=== PATIENT | female | born 1945 | race Caucasian/White ===

== ENCOUNTER 2020-04-18 06:32 | Outpatient (CLI) | payer MEDICARE, SELFPAY ==
--- NOTE | 2020-04-23 10:36 | WPDNEUROLOGY ---
Neurology EEG Report General Information Date of Study: 04/18/20 TEST EEG DIAGNOSIS recurrent syncopal episode in addition to the history of meningioma CONDITION OF RECORDING awake, drowsy and sleep EEG NUMBER [id number] CLINICAL HISTORY patient reported she has had 2 episodes of blacking out. No warning signs before and is fine afterwards. EEG DESCRIPTION Basic resting occipital frequency consists of minimal amount of poorly organized low voltage 9 to 11 hertz per second alpha. Low-voltage beta activity is seen during drowsiness. bilateral symmetrical sleep activity seen during sleep. photic stimulation produced normal drive. hyperventilation not done .non paroxysmal, nonfocal, non lateralizing. IMPRESSION No significant abnormalities noted.
== END 2020-04-18 06:33 | disposition home or self-care (01) ==
PROVIDERS: PCP Internal Medicine; Visit Provider Internal Medicine
DX: R55 Syncope and collapse (principal); D32.0 Benign neoplasm of cerebral meninges
CPT/HCPCS: 95816

== ENCOUNTER 2021-04-20 12:40 | Outpatient (CLI) | payer MEDICARE, SELFPAY ==
--- NOTE | ~2021-04-20 | MR_ITS ---
EXAMINATION: MR brain/brain stem wo con EXAM DATE: 04/20/2021 14:07 INDICATION: Headache and confusion. History meningioma 2008. TECHNIQUE: Magnetic resonance imaging (MRI) of the brain/brain stem obtained without contrast. Elidaitt al T1, axial diffusion, gradient echo (T2*), T1, T2, FLAIR sequences obtained. There is no prior st udy for comparison. FINDINGS: There is a mass which appears to be extra-axial and arising from the right sphenoid wing, m easuring 3.1 x 3.1 axial dimensions, encasing the right distal ICA and middle cerebral artery, and bu lging into the brain parenchyma. Ill-defined interface with the brain parenchyma at the superior joanne in, difficult to totally exclude parenchymal invasion without contrast enhanced images. There is larg e amount of right cerebral white matter vasogenic edema. There is also extension into the sella turci ca. There is 11 mm of contralateral leftward midline shift. There is effacement of the right lateral ventricle. No transtentorial herniation. Old left cerebellar infarction. There is mild to moderate microangiopathy. Dilated perivascular space s. No acute infarction, extra-axial collections or acute intracranial hemorrhage. IMPRESSION: Large right-sided extra-axial mass most likely meningioma arising from sphenoid wing, bulging into se lla turcica, brain parenchyma causing extensive vasogenic edema, and moderate contralateral midline s hift. Right distal ICA, MCA encasement. Given these findings, neurosurgical consult should be obtaine d. Contrast enhanced images should also be obtained to exclude parenchymal invasion. I discussed this case, recommendation with Antoine DeleonMD at 04/20/2021 14:35 PREDICTIVE MAINTENANCE TECHNICIAN. Reviewed, dictated and finalized at location A. ICTIVE MAINTENANCE TECHNICIAN IMPRESSION: Large right-sided extra-axial mass most likely meningioma arising from sphenoid wing, bulging into sella turcica, brain parenchyma causing extensive vasogenic edema, and moderate contralateral midline shift. Right distal ICA, MCA encasem ent. Given these findings, neurosurgical consult should be obtained. Contrast e nhanced images should also be obtained to exclude parenchymal invasion. I discussed this case, recommendation with Antoine DeleonMD at 04/20/2021 14:35 PREDICTIVE MAINTENANCE TECHNICIAN.
== END 2021-04-20 12:41 | disposition home or self-care (01) ==
LOC: ANHIMG 12:46
PROVIDERS: PCP Internal Medicine; Visit Provider Internal Medicine
DX: R41.0 Disorientation, unspecified (principal); R51.9 Headache, unspecified
CPT/HCPCS: 70551

== ENCOUNTER 2021-06-19 00:52 | Day surgery (SDC) | payer MEDICARE, SELFPAY ==
[2021-05-28 13:28] VITALS: BMI 25.4
--- NOTE | 2021-05-28 14:00 | PC.NURSE ---
Report to the Outpatient Waiting Room, entrance under the green pavilion located off [facility], at time _0600_ on date _06/03/21__. OR Time: _0730 AM__. - You and your visitor will be asked a series of questions to screen for COVID 19 for your protection. - A mask is required within the hospital. - NO visitors is allowed at this time. Patient visitors will be guided where to wait when not with patient. Preoperative COVID Testing Requirements: No COVID Test needed if: (proof is required; if not received patient will have Rapid Test prior to entry) - Patient has received COVID Vaccine at least 14 days prior to procedure date or - Patient has positive COVID test result within last 90 days of surgery date. COVID Test needed if above criteria is not met If not COVID vaccinated a COVID test must be conducted within 72 hours of surgery and patient is asked to isolate self from time of testing until procedure. You will go to the [employer] [facility] for your COVID testing. The [employer] [facility] is located at the corner [address] [facility]. You will only be called if COVID results are positive and your surgeon may reschedule your elective surgery date. Patients may have clear liquids (water, carbonated beverages, clear teas, apple juice) until 3 hours prior to surgery with a maximum of 20 ounces. (0430 AM) - No food from midnight until time of surgery - Infants may have breast milk until 4 hours before surgery, infant formula 6 hours prior to surgery. - Children will be allowed to drink immediately following surgery. If applicable, please bring a bottle or sippy cup to assist with drinking. Juice, water, soda, and popsicles are readily available. For infants on formula, please bring formula the day of surgery. Pacifiers are allowed. Take the following medications with a SIP of water the morning of surgery: _AMLODIPINE, DEXAMETHASONE, LEVETIRACETAM, LEVOTHYROXINE, LORAZEPAM, SERTRALINE, VENLAFAXINE, EYE DROPS__ Medications to discontinue per ANESTHESIA - _ALL VITAMINS AND SUPPLEMENTS____ Date to take last dose____05/30/21 Please no make-up, nail lithuanian, hairspray, perfume, deodorant, or body powder the day of surgery. No jewelry (including any body piercings) or valuables the day of surgery, leave them at home. Please take a shower or bath the night before, or the morning of, surgery with an antibacterial soap. Wear comfortable, loose fitting clothing. Children are encouraged to wear pajamas. - Jewelry must be removed prior to entering the operating room. Rings and piercings that are not removed may be cut off. - The hospital will not accept responsibility for valuables. - Please leave all valuables, including medications, at home the day of surgery. If you are going home after surgery, a licensed regional otr company driver must drive you home. - NO public transportation without another adult. - We recommend that an adult stay with you for 24 hours following discharge. - We also recommend that you do not drive, make important decision, drink alcoholic beverages, or take any drugs that were not prescribed by your health care provider for at least 24 hours after your discharge time. For Pediatric surgeries, we recommend two adults accompany the child home (only one inside the building at this time). Follow any additional instructions given to you from your surgeon. FLEETS ENEMA NIGHT BEFORE & AM OF SURGERY Telephone instructions given to_P'TS SPOUSE - EMIL__and asked if any additional questions and then verbalized understanding. Patient advised to call surgeon office or pre surgery nurse liaison [phone] if any additional questions.
--- NOTE | 2021-06-02 14:17 | WPDANESEPPF ---
Anes - Initial Pre Proc Eval Procedure: Operation Date: 06/03/21 07:30 Proposed Procedures p Rubber Band Ligation of Internal Hemorrhoids - Claudio Anderson MD Date/Time: 06/18/21 14:17 Surgeon: Claudio Anderson MD Pre Op Diagnosis: prolapsed bleeding internal hemorrhoids stage (IV) Patient Data Age: 75 Gender: F Height: 1.63 m Weight: 67.27 kg Allergies Allergy/AdvReac Type Severity Reaction Status Date / Time adhesive tape Allergy Intermediate Rash Verified 06/19/21 08:39 Sulfa (Sulfonamide Allergy Intermediate Rash Verified 06/19/21 08:39 Antibiotics) latex Allergy Rash Verified 06/19/21 09:35 Home Medications Medication Instructions Recorded Confirmed Type amlodipine 5 mg tablet 5 mg PO QAM 04/08/21 06/19/21 History cetirizine 10 mg tablet 10 mg PO DAILY PRN 04/08/21 06/19/21 History donepezil 5 mg tablet 5 mg PO QHS 04/08/21 06/19/21 History levothyroxine 50 mcg capsule 50 mcg PO QAM 04/08/21 06/19/21 History lorazepam 0.5 mg tablet 0.25 mg PO DAILY PRN 04/08/21 06/19/21 History losartan 50 mg tablet 150 mg PO QAM tablet 04/08/21 06/19/21 History venlafaxine 150 mg 150 mg PO QAM 04/08/21 06/19/21 History capsule,extended release 24 hr carboxymethylcellulose sodium 0.5 1 drp EACH EYE BID 04/14/21 06/19/21 History % eye drops cholecalciferol (vitamin D3) 25 25 mcg PO DAILY 04/14/21 06/19/21 History mcg (1,000 unit) capsule cyclosporine 0.05 % eye drops 1 drp EACH EYE Q12H 04/14/21 06/19/21 History multivitamin 1 tablet PO QAM 04/14/21 06/19/21 History sertraline 100 mg tablet 100 mg PO QAM 04/14/21 06/19/21 History vitamin E 200 unit capsule 200 unit PO QAM 04/14/21 06/19/21 History vitamins A,C,Z-dhdo-ekrlzq 14,320 1 cap PO BID 04/14/21 06/19/21 History unit-226 mg-200 unit capsule dexamethasone 8 mg BID 12/30/21 01/21/22 History levetiracetam 250 mg PO BID 05/28/21 06/19/21 History pentoxifylline 400 mg PO TID 05/28/21 06/19/21 History carbidopa-levodopa 1 tablet PO TID 06/12/21 06/19/21 History hydrocodone-acetaminophen 1 tablet PO Q6H PRN #10 tablet 06/19/21 Rx Patient hx anesthesia problems: none Family hx anesthesia problems: none Results Review: All pre-operative results and documents have been reviewed as part of the pre-operative evaluation. PENDING SALE TO [facility] Past Medical History Medical History (Updated 06/19/21 @ 10:32 by Claudio Anderson MD) Dizziness History of breast cancer Hypertension Meningioma Primary hyperparathyroidism Seizures Thyroid disease Surgical History Surgical History Status post bilateral knee replacements 2012 and 2013 Family History Family History Father Hypertension Family history of congestive heart failure Mother Hypertension Family history of emphysema Sibling Hypertension Grandparent Cerebrovascular accident Social History Social History Smoking status: Never smoker Second hand tobacco smoke exposure: No Alcohol intake: never Substance use: never Substance use type: does not use Living arrangements: with family Spiritual care concerns: No Anes - Eval Final PreProcedure Day of Procedure 06/02/21 14:17 Patient weight: overweight Heart: regular rate and rhythm Lungs: clear to auscultation and normal air movement Airway: Mallampati scale class II Neurological: alert and oriented Last oral intake: >/= 8 hours ASA classification: III Emergent: no Anesthetic plan: proceed Anesthesia type and monitoring: general GIVS and standard monitoring Results Review: All pre-operative results and documents have been reviewed as part of the pre-operative evaluation. Informed Consent: The patient's anesthetic plan and its attendant risks and benefits were discussed with the patient/family/POA. Questions were solicited and answers provided to the satisfact
[2021-06-12 13:15] VITALS: BMI 25.4
--- NOTE | 2021-06-12 13:26 | PC.NURSE ---
Report to the Outpatient Waiting Room, entrance under the green pavilion located off [facility], at time _0730_ on date _06/19/21_. OR Time: __929___. - You and your visitor will be asked a series of questions to screen for COVID 19 for your protection. - A mask is required within the hospital. - No visitors are allowed at this time. Patient visitors will be guided where to wait when not with patient. Preoperative COVID Testing Requirements: No COVID Test needed if: (proof is required; if not received patient will have Rapid Test prior to entry) - Patient has received COVID Vaccine at least 14 days prior to procedure date or - Patient has positive COVID test result within last 90 days of surgery date. COVID Test needed if above criteria is not met If not COVID vaccinated a COVID test must be conducted within 72 hours of surgery and patient is asked to isolate self from time of testing until procedure. You will go to the [employer] [facility] for your COVID testing. The [employer] [facility] is located at the corner of [address] [facility]. You will only be called if COVID results are positive and your surgeon may reschedule your elective surgery date. Patients may have clear liquids (water, carbonated beverages, clear teas, apple juice) until 3 hours prior to surgery with a maximum of 20 ounces. (0630 AM) - No food from midnight until time of surgery - Infants may have breast milk until 4 hours before surgery, infant formula 6 hours prior to surgery. - Children will be allowed to drink immediately following surgery. If applicable, please bring a bottle or sippy cup to assist with drinking. Juice, water, soda, and popsicles are readily available. For infants on formula, please bring formula the day of surgery. Pacifiers are allowed. Take the following medications with a SIP of water the morning of surgery: _AMLODIPINE, CARBIDOPA-LEVODOPA, DEXAMETHASONE, LEVETIRACETAM, LEVOTHYROXINE, LORAZEPAM, SERTRALINE, VENLAFAXINE, EYE DROPS_ Medications to discontinue per ANESTHESIA - _ALL VITAMINS & SUPPLEMENTS 3 DAYS PRIOR TO SURGERY____ Date to take last dose 06/15/21 Please no make-up, nail greenlandic, hairspray, perfume, deodorant, or body powder the day of surgery. No jewelry (including any body piercings) or valuables the day of surgery, leave them at home. Please take a shower or bath the night before, or the morning of, surgery with an antibacterial soap. Wear comfortable, loose fitting clothing. Children are encouraged to wear pajamas. - Jewelry must be removed prior to entering the operating room. Rings and piercings that are not removed may be cut off. - The hospital will not accept responsibility for valuables. - Please leave all valuables, including medications, at home the day of surgery. If you are going home after surgery, a licensed warehouse delivery driver must drive you home. - NO public transportation without another adult. - We recommend that an adult stay with you for 24 hours following discharge. - We also recommend that you do not drive, make important decision, drink alcoholic beverages, or take any drugs that were not prescribed by your health care provider for at least 24 hours after your discharge time. For Pediatric surgeries, we recommend two adults accompany the child home (only one inside the building at this time). Follow any additional instructions given to you from your surgeon. FLEETS ENEMA NIGHT BEFORE & AN OF SURGERY Telephone instructions given to __PT'S SPOUSE FRANCIS and asked if any additional questions and then verbalized understanding. Patient advised to call surgeon office or pre surgery nurse liaison [phone] if any additional questions.
--- NOTE | 2021-06-17 14:40 | PM.SD2 ---
Same Day Admit/Disch: HPI History of Present Illness Chief complaint: prolapsed bleeding internal hemorrhoids stage (IV) Narrative: Juliette Bradshaw is a 75 year old female With history of meningioma. She was seen in the office with complaints of rectal bleeding and a prolapsing hemorrhoid. Examination showed a chronically prolapsed, stage IV, right posterior complex internal hemorrhoid. She is taken to surgery now for rubber band ligation. [facility] Past Medical History Medical History (Updated 06/19/21 @ 10:32 by Claudio Anderson MD) Dizziness History of breast cancer Hypertension Meningioma Primary hyperparathyroidism Seizures Thyroid disease Surgical History Surgical History Status post bilateral knee replacements 2012 and 2013 Family History Family History Father Hypertension Family history of congestive heart failure Mother Hypertension Family history of emphysema Sibling Hypertension Grandparent Cerebrovascular accident Social History Social History Smoking status: Never smoker Second hand tobacco smoke exposure: No Alcohol intake: never Substance use: never Substance use type: does not use Living arrangements: with family Spiritual care concerns: No Same Day Admit/Disch: Med Pre-admit Medications Home Medications Medication Instructions Recorded Confirmed Type amlodipine 5 mg tablet 5 mg PO QAM 04/08/21 06/19/21 History cetirizine 10 mg tablet 10 mg PO DAILY PRN 04/08/21 06/19/21 History donepezil 5 mg tablet 5 mg PO QHS 04/08/21 06/19/21 History levothyroxine 50 mcg capsule 50 mcg PO QAM 04/08/21 06/19/21 History lorazepam 0.5 mg tablet 0.25 mg PO DAILY PRN 04/08/21 06/19/21 History losartan 50 mg tablet 150 mg PO QAM tablet 04/08/21 06/19/21 History venlafaxine 150 mg 150 mg PO QAM 04/08/21 06/19/21 History capsule,extended release 24 hr carboxymethylcellulose sodium 0.5 1 drp EACH EYE BID 04/14/21 06/19/21 History % eye drops cholecalciferol (vitamin D3) 25 25 mcg PO DAILY 04/14/21 06/19/21 History mcg (1,000 unit) capsule cyclosporine 0.05 % eye drops 1 drp EACH EYE Q12H 04/14/21 06/19/21 History multivitamin 1 tablet PO QAM 04/14/21 06/19/21 History sertraline 100 mg tablet 100 mg PO QAM 04/14/21 06/19/21 History vitamin E 200 unit capsule 200 unit PO QAM 04/14/21 06/19/21 History vitamins A,C,A-imkw-savfhv 14,320 1 cap PO BID 04/14/21 06/19/21 History unit-226 mg-200 unit capsule dexamethasone 8 mg BID 05/28/21 06/19/21 History levetiracetam 250 mg PO BID 05/28/21 06/19/21 History pentoxifylline 400 mg PO TID 05/28/21 06/19/21 History carbidopa-levodopa 1 tablet PO TID 06/12/21 06/19/21 History hydrocodone-acetaminophen 1 tablet PO Q6H PRN #10 tablet 06/19/21 Rx Exam Const: General: comfortable, no acute distress, alert and awake HENMT: Head: normocephalic and atraumatic Mouth: Yes Normal oral and palatal mucosa present Eyes: Conjunctivae: conjunctivae normal Pupils: Equal, round and reactive pupils present EOM: EOMs intact bilaterally Resp: Effort & Inspection: normal respiratory effort Auscultation: clear to auscultation bilaterally Cardio: Rate: regular rate Rhythm: regular rhythm Heart sounds: no gallops, no murmurs and no rubs GI: Inspection: non-distended GI Palp: Yes Soft to palpation, No Tenderness to palpation present (GI), No Hepatomegaly present and No Splenomegaly present Rectal Exam: External hemorrhoid(s) present ( small and uncomplicated, asymptomatic) and Internal hemorrhoid(s) present ( Prolapsed right posterior internal hemorrhoid) Skin: Lesions: no lesions Rashes: no rashes Neuro: General: no focal motor deficits and CN's II-XI intact bilaterally Cranial nerves: Yes Equal, round and reactive pupils present, Yes Bilaterally intact EOM present, Yes faci
--- NOTE | 2021-06-19 07:08 | WPDHPUPDATE1 ---
History and Physical Update Update Date/Time: 06/19/21 07:08 History and Physical has been reviewed, including an updated exam of the patient. There are NO changes in the patient's condition. Risks, benefits, and alternatives have been discussed and questions answered. Patient agrees to proceed with procedure.
--- NOTE | 2021-06-19 08:08 | WPDANESEPP ---
Anes - Eval Pre Procedure Procedure: Operation Date: 06/19/21 09:30 Proposed Procedures p Rubber Band Ligation of Internal Hemorrhoids - Claudio Anderson MD Date/Time: 06/19/21 08:08 Pre Op Diagnosis: prolapsed bleeding internal hemorrhoids stage (IV) Patient Data Age: 75 Gender: F Height: 1.63 m Weight: 67.27 kg Allergies Allergy/AdvReac Type Severity Reaction Status Date / Time adhesive tape Allergy Intermediate Rash Verified 06/12/21 13:19 Sulfa (Sulfonamide Allergy Intermediate Rash Verified 06/12/21 13:19 Antibiotics) Home Medications Medication Instructions Recorded Confirmed Type amlodipine 5 mg tablet 5 mg PO QAM 04/08/21 06/12/21 History cetirizine 10 mg tablet 10 mg PO DAILY PRN 04/08/21 06/12/21 History donepezil 5 mg tablet 5 mg PO QHS 04/08/21 06/12/21 History levothyroxine 50 mcg capsule 50 mcg PO QAM 04/08/21 06/12/21 History lorazepam 0.5 mg tablet 0.25 mg PO DAILY PRN 04/08/21 06/12/21 History losartan 50 mg tablet 150 mg PO QAM tablet 04/08/21 06/12/21 History venlafaxine 150 mg 150 mg PO QAM 04/08/21 06/12/21 History capsule,extended release 24 hr carboxymethylcellulose sodium 0.5 1 drp EACH EYE BID 04/14/21 06/12/21 History % eye drops cholecalciferol (vitamin D3) 25 25 mcg PO DAILY 04/14/21 06/12/21 History mcg (1,000 unit) capsule cyclosporine 0.05 % eye drops 1 drp EACH EYE Q12H 04/14/21 06/12/21 History multivitamin 1 tablet PO QAM 04/14/21 06/12/21 History sertraline 100 mg tablet 100 mg PO QAM 04/14/21 06/12/21 History vitamin E 200 unit capsule 200 unit PO QAM 04/14/21 06/12/21 History vitamins A,C,P-wqsp-rnsqxr 14,320 1 cap PO BID 04/14/21 06/12/21 History unit-226 mg-200 unit capsule dexamethasone 8 mg BID 05/28/21 06/12/21 History levetiracetam 250 mg PO BID 05/28/21 06/12/21 History pentoxifylline 400 mg PO TID 05/28/21 06/12/21 History carbidopa-levodopa 1 tablet PO TID 06/12/21 06/12/21 History Patient hx anesthesia problems: none Family hx anesthesia problems: none Results Review: All pre-operative results and documents have been reviewed as part of the pre-operative evaluation. [facility] Past Medical History Medical History (Updated 06/19/21 @ 08:09 by Rebecca Mosqueda CRNA) Dizziness History of breast cancer Hypertension Meningioma Primary hyperparathyroidism Seizures Thyroid disease Surgical History Surgical History Status post bilateral knee replacements 2012 and 2013 Family History Family History Father Hypertension Family history of congestive heart failure Mother Hypertension Family history of emphysema Sibling Hypertension Grandparent Cerebrovascular accident Social History Social History Smoking status: Never smoker Second hand tobacco smoke exposure: No Alcohol intake: never Substance use: never Substance use type: does not use Living arrangements: with family Spiritual care concerns: No Exam Day of Procedure 06/19/21 08:08 Patient weight: normal
[2021-06-19] MEDS: LACTATED RINGERS 1,000 ML 30 ML IV CONT (09:30)
[2021-06-19] MEDS: KETOROLAC 15 MG/ML VIAL (*BKC) IV PUSH (09:31)
[2021-06-19 09:32] VITALS: BP 103/73; PULSE 95; RESP 16; TEMP 36.7; O2SAT 95
--- NOTE | 2021-06-19 09:32 | WPDANESEFPP ---
Anes - Eval Final PreProcedure Day of Procedure 06/19/21 09:32 Patient weight: normal Lungs: clear to auscultation and decreased breath sounds Airway: Mallampati scale class II Neurological: lethargic and confused (pt's family at bedside. states pt has been having some confusion since February. pt alert and oriented at this time though seems to have trouble with recalling health history etc.) ASA classification: III Anesthetic plan: proceed Anesthesia type and monitoring: general GIVS Results Review: All pre-operative results and documents have been reviewed as part of the pre-operative evaluation. Informed Consent: The patient's anesthetic plan and its attendant risks and benefits were discussed with the patient/family/POA. Questions were solicited and answers provided to the satisfaction of the patient/family/POA.
[2021-06-19] MEDS: ceFAZolin 2 GM/D5W 50 ML 2 GM/50 ML BAG IVPB (09:41)
[2021-06-19] MEDS: BUPIVACAINE/EPINEPHRINE 0.25% 10 ML VIAL 30 ML INFILTRATE (10:00)
[2021-06-19 10:21] VITALS: BP 101/72; PULSE 79; RESP 12; O2SAT 95
--- NOTE | 2021-06-19 10:33 | W.PM.PROC2 ---
Procedure Note - Detailed Date of Procedure 06/19/21 Pre-op Diagnosis prolapsed bleeding internal hemorrhoids stage (IV) Post-op Diagnosis other (Prolapsed bleeding internal and external hemorrhoids) Procedure Performed Excision right anterior internal and external hemorrhoids, rubber-band ligation internal hemorrhoids Surgeon Claudio Anderson MD Anesthesia MAC and local (0.25% Marcaine with epinephrine) Indications Patient has had a chronic stage IV prolapsed internal hemorrhoid in the right anterior position which is uncomfortable and also bleeds. She is taken to surgery now for rubber-band ligation. Findings The internal hemorrhoid was larger than expected and associated with an external hemorrhoid. This complex was excised from the right anterior position. There was still an internal hemorrhoid which was treated with rubber-band ligation in the same location. Description of Procedure The patient was taken to surgery and placed in prone connie-knife position. She was given IV sedation with propofol. The buttocks were taped apart. She was prepped and draped. Small Hill-Kelly anoscope was introduced. Findings were as above. Local anesthetic was infiltrated using 10 cc deep subdermal 10 cc intra sphincteric. Was a small Hill-Kelly anoscope in place, I excised the internal and external hemorrhoid complex at the right anterior location. This wound was closed with running locking 4-0 chromic suture. There was still a residual internal hemorrhoid which I treated with rubber-band ligation. Following this, the wound was hemostatic and no other anorectal pathology was noted. The rectum was dressed with Xeroform gauze fluffs and promise panties. Patient was returned to a supine position, awakened and taken to outpatient surgery for recovery. Sponge needle counts were correct x2. Estimated Blood Loss -5 Drains No Packing No Pathology yes (Right anterior internal and external hemorrhoidal complex) Complications None Condition stable Disposition same day
[2021-06-19 10:50] VITALS: BP 106/72; PULSE 74; RESP 14; O2SAT 95
[2021-06-19 11:20] VITALS: BP 124/85; PULSE 76; RESP 14
== END 2021-06-19 11:52 | disposition home or self-care (01) ==
PROVIDERS: PCP Internal Medicine; Visit Provider Surgery
PROC: (CPT 46255; principal; 2021-06-19 09:30)
DX: K64.3 Fourth degree hemorrhoids (principal); E03.9 Hypothyroidism, unspecified; I10 Essential (primary) hypertension; E21.3 Hyperparathyroidism, unspecified; R41.0 Disorientation, unspecified
CPT/HCPCS: 46255; 88304; A9270; J0690; J1885; J2704; J3010; J7120

== ENCOUNTER 2021-10-29 15:45 | Emergency (ER) | payer OTHER, MEDICARE, SELFPAY ==
--- NOTE | ~2021-10-29 | CT_ITS ---
EXAMINATION: CT brain wo con DATE: 10/29/2021 16:56 INDICATION: Confusion. TECHNIQUE: Computed tomography (CT) of the head was performed without intravenous contrast. The mA wa s adjusted according to patient size. Iterative reconstruction technique was employed. The dose-lengt h product was 529.67 mGy-cm. COMPARISON: Brain MRI 04/20/2021 FINDINGS: There is a calcified sellar and suprasellar mass centered to the right of midline measuring 4.2 x 3.0 x 3.2 cm. There is decreased attenuation in the white matter in the right frontotemporal r egion, right insula, right internal capsule, left frontal lobe, and left internal capsule, consistent with vasogenic edema similar to the distribution on the prior exam. There is 9 mm leftward midline s hift. There is a right parietal occipital shunt catheter with tip in anterior body of left lateral ve ntricle. There is chronic encephalomalacia in left occipital lobe. There are changes of left posterio r craniotomy. There is a 1.6 x 0.6 cm calcified extra-axial mass in the left anterior foramen magnum. There is no acute ischemic infarct or intracranial hemorrhage. The paranasal sinuses are clear. The mastoid air cells are normal. IMPRESSION: 1. 4.2 cm calcified sellar and suprasellar mass centered to the right of midline, stable from 021 considering differences in technique, consistent with a meningioma. 2. 1.6 x 0.6 cm calcified extra-axial mass in left anterior foramen magnum, consistent with a meningi sarahy. 3. 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 4. 9 mm leftward midline shift, improved from 11 mm on 04/20/21. 5. Ventricles with normal sizes considering mass effect. Shunt catheter in expected position. Reviewed, dictated and finalized at location A. IMPRESSION: 1. 4.2 cm calcified sellar and suprasellar mass centered to the right of midlin e, stable from 04/20/2021 considering differences in technique, consistent with a meningioma. 2. 1.6 x 0.6 cm calcified extra-axial mass in left anterior foramen magnum, con sistent with a meningioma. 3. 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 4. 9 mm leftward midline shift, improved from 11 mm on 04/20/21. 5. Ventricles with normal sizes considering mass effect. Shunt catheter in expe cted position.
--- NOTE | ~2021-10-29 | XR_ITS ---
XR chest 1V DATE: 10/29/2021 17:03 INDICATION: Confusion for one week. Hypertension. TECHNIQUE: AP chest COMPARISON: None FINDINGS: Shunt catheter tubing overlies the right neck, chest and abdomen. Right upper cavity PICC catheter tip overlies superior vena cava. Diffuse osteopenia. drawer in plain loom device overlies the lower left chest. Surgical clips overlie the left breast and axilla. Diffuse osteopenia. Dextroscoliosis of the thoracic spine. Normal heart size. Mild aortic unfolding. No hilar or mediastinal enlargement. There are numerous tierra cified pulmonary granulomas and calcified bilateral hilar and mediastinal nodes, consistent with old pulmonary granulomatous disease. No pulmonary infiltrate or consolidation, pleural effusion or pulmonary vascular congestion or pneumo thorax is detected. IMPRESSION: Old pulmonary granulomatous disease No active cardiopulmonary disease Osteopenia Ventriculoperitoneal shunt Right upper extremity PIC catheter tip overlies superior vena cava. Reviewed, dictated and finalized at location A.
[2021-10-29 15:45] VITALS: PULSE 88; RESP 16; TEMP 37.1; O2SAT 93
--- NOTE | 2021-10-29 15:59 | ECG_ITS ---
Measurements Intervals [place] Rate: 88 P: 42 MS: 163 QRS: -20 QRSD: 86 T: 63 QT: 379 QTc: 459 Interpretive Statements SINUS RHYTHM CANNOT RULE OUT INFERIOR INFARCTION, AGE INDETERMINATE BORDERLINE ECG NO PREVIOUS ECG AVAILABLE FOR COMPARISON Electronically Signed On 10-29-2021 17:59:46 CDT by Magdaleno Keenan M.D.
[2021-10-29 16:09] LABS: Basophils Absolute Auto 0.1 K/mm3 (0.0-0.1); Basophils Percent Auto 0.6 % (0.2-1.2); Eosinophils Absolute Auto 0.3 K/mm3 (0-0.3); Eosinophils Percent Auto 3.6 % (0-4.4); Hematocrit 34.9 % (37.0-47.0); Hemoglobin 11.1 g/dL (12.0-15.0); Immature Granulocyte Absolute 0.04 K/mm3 (0.00-0.031); Immature Granulocyte Percent A 0.5 % (0-0.5); Lymphocytes Absolute Auto 3.07 K/mm3 (0.9-3.2); Lymphocytes Percent Auto 37.7 % (18.3-44.2); Mean Corpuscular HGB Conc 31.8 g/dl (32-36); Mean Corpuscular Volume 94.3 fl (80-100); Mean Platelet Volume 10.9 fl (7.4-10.4); Monocytes Absolute Auto 0.7 K/mm3 (0.1-0.6); Monocytes Percent Auto 8.2 % (2.6-8.5); Neutrophils Percent Auto 49.4 % (45.5-73.1); Platelet Count Result 432 k/mm3 (150-375); Red Cell Distribution Width 13.8 % (11.5-14.5); White Blood Count 8.1 K/mm3 (4.5-10.0)
[2021-10-29 16:10] LABS: Alanine Aminotransferase 11 U/L (6-35); Albumin Level 3.2 g/dL (3.5-5.1); Alkaline Phosphatase 84 U/L (38-126); Anion Gap 4 mmol/L (8-16); Aspartate Amino Transferase 21 U/L (14-36); Bilirubin,Total 0.2 mg/dL (0.2-1.3); Blood Urea Nitrogen 12 mg/dL (7-17); Calcium 8.7 mg/dL (8.4-10.2); Carbon Dioxide 30 mmol/L (22-30); Chloride 108 mmol/L (98-107); Estimated CRCL calculation 55 ml/min; Estimated Glomerular Filt Rate > 60; Glucose 94 mg/dL (65-110); Potassium 3.8 mmol/L (3.4-5.0); Sodium 142 mmol/L (137-145)
[2021-10-29 16:33] VITALS: BP 120/80; PULSE 90; RESP 16; O2SAT 98
--- NOTE | 2021-10-29 16:34 | ED.AMS ---
HPI - Altered Mental Status General Chief Complaint: Altered Mental Status Stated Complaint: AMS Time Seen by Provider: 10/29/21 15:57 History of Present Illness HPI narrative: Pt has had progressive decrease in awareness and mental status over the last several weeks at rehab. Pt apparently alert and oriented x3 several weeks ago now x1 (person). Pt has no specific complaints. Related Data Home Medications Medication Instructions Recorded Confirmed donepezil 5 mg tablet 5 mg PO QAM 04/08/21 10/22/21 levothyroxine 50 mcg capsule 50 mcg PO QAM 04/08/21 10/22/21 lorazepam 0.5 mg tablet 0.5 mg PO DAILY PRN ANXIETY 04/08/21 10/22/21 venlafaxine 150 mg 150 mg PO QAM 04/08/21 10/22/21 capsule,extended release 24 hr sertraline 100 mg tablet 100 mg PO QAM 04/14/21 10/22/21 levetiracetam 250 mg tablet 250 mg PO BID 05/28/21 10/22/21 pentoxifylline 400 mg 400 mg PO TID 05/28/21 10/22/21 tablet,extended release apixaban 5 mg tablet (Eliquis) 5 mg PO BID 10/22/21 10/22/21 d-mannose 500 mg capsule 500 mg PO QAM 10/22/21 10/22/21 furosemide 40 mg tablet 40 mg PO DAILY 10/22/21 10/22/21 nitrofurantoin 100 mg PO Q12H 10/22/21 10/22/21 monohydrate/macrocrystals 100 mg capsule (Macrobid) potassium chloride 10 mEq 10 meq PO DAILY 10/22/21 10/22/21 tablet,extended release Allergies Allergy/AdvReac Type Severity Reaction Status Date / Time adhesive tape Allergy Intermediate Rash Verified 07/28/21 14:42 Sulfa (Sulfonamide Allergy Intermediate Rash Verified 07/28/21 14:42 Antibiotics) latex Allergy Rash Verified 07/28/21 14:42 Review of Systems Review of Systems: ROS unobtainable: Yes unobtainable due to mental status PMFSH Past Medical History Medical History COVID Depression Dizziness Dysphagia History of breast cancer Hypertension Meningioma Osteoarthritis Primary hyperparathyroidism Seizure Seizures Thyroid disease Vocal cord paralysis, unilateral complete Surgical History Surgical History H/O hemorrhoidectomy 06/19/21 Excision right anterior internal and external hemorrhoids, rubber-band ligation internal hemorrhoids Status post bilateral knee replacements 2012 and 2013 Family History Family History Father Hypertension Family history of congestive heart failure Mother Hypertension Family history of emphysema Sibling Hypertension Grandparent Cerebrovascular accident Social History Social History Social History: lives with single-story home. Smoking status: Never smoker Second hand tobacco smoke exposure: No Alcohol intake: never Substance use: never Substance use type: does not use Spiritual care concerns: No Exam Const: General: healthy appearing and no acute distress Nutritional Appearance: well nourished Limitations: altered mental status (oriented to person only. thinks she is at rehab facility and its 1999) HENMT: Head: normal to inspection Eyes: Pupils: Equal, round and reactive pupils present EOM: EOMs intact bilaterally Neck: Neck: normal visual inspection, no lymphadenopathy and no meningeal signs Chest: Chest palpation & inspection: normal inspection of the chest Resp: Effort & Inspection: normal respiratory effort Auscultation: clear to auscultation bilaterally Cardio: Rate: regular rate Rhythm: regular rhythm GI: GI Palp: Yes Soft to palpation Auscultation: normal bowel sounds Skin: General skin exam: normal color Rashes: no rashes Wounds: no wounds Neuro: General: moves all extremities, no meningeal signs and no focal motor deficits Cranial nerves: Yes Nystagmus not present Speech: normal speech Extrem: General: normal to inspection and no clubbing, cyanosis or edema Psych: Affect: normal affect At
[2021-10-29 16:56] LABS: Appearance Urine Slightly Cloudy (Clear); Bilirubin Urine Negative (Negative); Blood Urine Negative (Negative); Color Urine Yellow (Yellow); Glucose Urine UA Negative (Negative); Ketones Urine Negative (Negative); Leukocyte Esterase Ur Negative LEU/UL (Negative); Nitrate Urine Negative (Negative); Protein Urine Negative (Negative); Specific Grav Ur 1.015 (1.001-1.035); Urobilinogen Urine 0.2 mg/dL (<2.0)
[2021-10-29 17:02] LABS: Add Urine Microscopic? YES; Bacteria Urine Trace /hpf; WBC Urine 0-3 /hpf
== END 2021-10-29 18:20 ==
PROVIDERS: Emergency Medicine; Emergency Provider Emergency Medicine; PCP Hospitalist
DX: R41.0 Disorientation, unspecified (principal); I10 Essential (primary) hypertension; E21.3 Hyperparathyroidism, unspecified; M19.90 Unspecified osteoarthritis, unspecified site; F32.A Depression, unspecified; Z85.3 Personal history of malignant neoplasm of breast; Z86.16 Personal history of COVID-19; Z96.653 Presence of artificial knee joint, bilateral; Z79.01 Long term (current) use of anticoagulants; R94.31 Abnormal electrocardiogram [ECG] [EKG]; G93.9 Disorder of brain, unspecified; M85.88 Other specified disorders of bone density and structure, other site; Z98.2 Presence of cerebrospinal fluid drainage device
CPT/HCPCS: 36415; 51701; 70450; 71045; 80053; 81001; 85025; 93005; 99284